=== PATIENT | female | born 1980 | race Caucasian/White ===

== ENCOUNTER 2019-04-27 06:27 | Day surgery (SDC) | payer OTHER ==
[2019-04-26 14:32] VITALS: BMI 41.5
[~2019-04-27] VITALS: Ht 160 cm; Wt 107.1 kg
[2019-04-27] VITALS (22 sets, daily range): BP systolic 120–177; BP diastolic 80–109; PULSE 68–100; RESP 14–23; Ht 160 cm; Wt 107.1 kg
[2019-04-27] MEDS ORDERED: ACETAMINOPHEN 500 MG TAB PO ONE (06:30)
[2019-04-27] MEDS ORDERED: LACTATED RINGER'S 1,000 ML IV SCH (07:25)
[2019-04-27] MEDS ORDERED: DICL75TA2 PO (07:31)
[2019-04-27] MEDS ORDERED: LACTATED RINGER'S 1,000 ML ONE (07:36)
[2019-04-27] MEDS ORDERED: ACETAMINOPHEN 500 MG TAB ONE (07:36)
[2019-04-27] MEDS ORDERED: ONDANSETRON 4 MG INJ ONE (08:20)
[2019-04-27] MEDS ORDERED: ROCURONIUM 50 MG INJ ONE (08:20)
[2019-04-27] MEDS ORDERED: DEXAMETHASONE 4 MG/ML 5 ML INJ ONE (08:20)
[2019-04-27] MEDS ORDERED: PROPOFOL 40 ML ONE (08:20)
[2019-04-27] MEDS ORDERED: FAMOTIDINE 20 MG INJ ONE (08:20)
[2019-04-27] MEDS ORDERED: FENTAnyl 50 MCG/ML VIAL ONE (08:20)
[2019-04-27] MEDS ORDERED: DESFLURANE 15 MIN ONE (08:20)
[2019-04-27] MEDS ORDERED: CEFAZOLIN 1 GM INJ ONE (08:20)
[2019-04-27] MEDS ORDERED: LIDOCAINE 2% (SDV) 5 ML INJ ONE (08:20)
[2019-04-27] MEDS ORDERED: MIDAZOLAM 1 MG/ML 2 ML INJ ONE (08:20)
[2019-04-27] MEDS ORDERED: BUPIVACAINE 0.25%/EPI (SDV) 30 ML INJ ONE (09:00)
[2019-04-27] MEDS ORDERED: TRIAMCINOLONE ACET 40 MG/ML INJ ONE (09:00)
[2019-04-27] MEDS ORDERED: POLYMYXIN/BACITRACIN 1L IRRIG ONE (09:00)
--- NOTE | 2019-04-27 09:05 | HPN ---
Date/Time of Note Date/Time of Note DATE: 04/27/19 TIME: 09:04 Interval H&P Admission Note Pt. seen H&P reviewed: No system changes ALIYA VALENCIA M.D. Apr 27, 2019 09:05
--- NOTE | 2019-04-27 09:15 | PREAC ---
Date/Time of Note Date/Time of Note DATE: 04/27/19 TIME: 09:13 Anesthesia Eval and Record Evaluation Time Pre-Procedure Interview DATE: 04/27/19 TIME: 09:13 Age 38 Sex female NPO: 8 hrs Preoperative diagnosis chronic tonsillitis Planned procedure Bilateral tonsillectomy Past Medical History Past Medical History: Includes GI: Morbid obesity Surgery & Anesthesia Issues No known issue (lap becca) Meds Anticoagulation: No Beta Jorge Luis within 24 hr: No Reason Beta Jorge Luis not given: Pt. not on B-Jorge Luis Reported Medications Diclofenac Sodium* (Diclofenac Sodium*) 75 Mg Tablet.dr, 75 MG PO BID, #60 TAB 04/27/19 Current Medications Lactated Ringer's 1,000 ml @ 20 mls/hr Q24H IV Last administered on 04/27/19at 07:38; Admin Dose 20 MLS/HR; Start 04/27/19 at 07:25 Meds reviewed: Yes Allergies Coded Allergies: No Known Allergy (Unverified , 04/27/19) Allergies Reviewed: Yes Labs/Studies Labs Reviewed: Reviewed by anesthesiologist test: Negative Pre-procedure Exam Last vitals Vital Signs Date Temp Pulse Resp B/P (MAP) Pulse Ox O2 O2 Flow FiO2 Time Delivery Rate 04/27/19 97.5 68 16 130/88 98 Room Air 07:30 (102) Airway: Adequate mouth opening, Adequate thyromental dist Mallampati: Mallampati II Teeth: Normal Lung: Normal Heart: Normal ASA Physical Status ASA physical status: 3 Emergency: None Planned Anesthetic General/MAC: ETT Pre-operative Attestations Prior to commencing anesthesia and surgery, the patient was re-evaluated, there was verification of: *The patient's identity *The results of appropriate recent lab work and preoperative vital signs *The above evaluation not changing prior to induction *Anesthetic plan, risk benefits, alternative and complications discussed with patient/family; questions answered; patient/family understands, accepts and wishes to proceed. DK SHANKS Apr 27, 2019 09:15
[2019-04-27] MEDS ORDERED: FENTAnyl 50 MCG/ML VIAL IV PRN (09:30)
[2019-04-27] MEDS ORDERED: morphine 2 MG INJ IV PRN ×2 (09:30)
[2019-04-27] MEDS ORDERED: ONDANSETRON 4 MG INJ IV PRN (09:30)
[2019-04-27] MEDS ORDERED: ALBUTEROL 0.083% (NEB) 2.5 MG/3 ML AMP HHN PRN (09:30)
[2019-04-27] MEDS ORDERED: HYDROmorphONE 1 MG/5 ML IV SYRINGE IV PRN ×3 (09:30)
[2019-04-27] MEDS ORDERED: MEPERIDINE 25 MG INJ IV PRN (09:30)
[2019-04-27] MEDS ORDERED: OXYCODONE/ACETAMINOPHEN (5/325) TAB PO PRN ×2 (09:30)
[2019-04-27] MEDS ORDERED: DIPHENHYDRAMINE 50 MG INJ IV PRN (09:30)
--- NOTE | 2019-04-27 10:17 | OPR ---
Date/Time of Note Date/Time of Note DATE: 04/27/19 TIME: 10:14 Operative Report Procedure Date: Apr 27, 2019 Preoperative Diagnosis 1. CHRONIC TONSILLITIS. Postoperative Diagnosis SAME. Operation/Procedure Performed 1. BILATERAL TONSILLECTOMY. Surgeon see signature line Industrial Eng NONE. Anesthesia Type: general (WITH OT TUBE INTUBAATION. 27 CC 1/4% MARCAINE WITH EPI 1:200,000 SOLN.) Estimated Blood Loss: 10 - 50 ml's Transfusion none Specimen LEFT AND RIGHT TONSILS. Grafts/Implants none Tubes/Drains NONE. Complications none Pt Condition Post Procedure: stable Disposition: PACU Indications TO PREVENT INFECTIONS. Procedure Description SEE DICTATED OPERATIVE REPORT. ALIYA VALENCIA M.D. Apr 27, 2019 10:17
--- NOTE | 2019-04-27 10:21 | PDOCDIS ---
Discharge Instructions DIAGNOSIS Discharge Diagnosis 1. CHRONIC TONSILLITIS CONDITION [id number] Patient Condition: Zkbvg2h Good HOME CARE INSTRUCTIONS: Oygna0Ct Diet Instructions: Wkjpl4r Regular (NO HOT OR SPICY FOODS. DRINK LOTS OF FLUIDS AND INTAKE LOTS OF FEEDINGS.) ACTIVITY: Ovoei2Sx Activity Restrictions: Uoxri4u Slowly Increase Activity Rest between Activity Avoid heavy lifting Avoid Heavy Housework Sytax2Oz Bathing Restrictions: Bcbxw3r Tub Bath FOLLOW UP/APPOINTMENTS Follow-up Plan MY OFFICE IN 10 TO 14 DAYS. SCHOOL/WORK RELEASE May return to School/Work on: May 11, 2019 May return to School/Work with: No Restrictions ALIYA VALENCIA M.D. Apr 27, 2019 10:21
--- NOTE | 2019-04-27 10:29 | PAC ---
Date/Time of Note Date/Time of Note DATE: 04/27/19 TIME: 10:28 Post-Anesthesia Notes Post-Anesthesia Note Last documented vital signs Vital Signs Date Temp Pulse Resp B/P Pulse Ox O2 O2 Flow FiO2 Time (MAP) Delivery Rate 04/27/19 97.5 98.1 68 95 16 16 130/88 98 97 Room 07:30 102 (102) 16 Air face 3 5/101 mask 6L Activity: WNL Respiratory function: WNL Cardiovascular function: WNL Mental status: Baseline Pain reasonably controlled: Yes Hydration appropriate: Yes Nausea/Vomiting absent: Yes DK SHANKS Apr 27, 2019 10:29
[2019-04-27] MEDS: FENTAnyl 50 MCG/ML VIAL IV PRN ×2 (10:33→10:46)
[2019-04-27] MEDS: LABETALOL HCL 20MG INJ IV PRN ×2 (10:45→11:26)
--- NOTE | 2019-04-27 12:18 | OPR ---
DATE OF OPERATION: 04/27/2019 SURGEON: Myke Thomas MD PREOPERATIVE DIAGNOSES: 1. Chronic tonsillitis. 2. Tonsillar tissue hypertrophy. 3. History of acute tonsillitis episodes. POSTOPERATIVE DIAGNOSES: 1. Chronic tonsillitis. 2. Tonsillar tissue hypertrophy. 3. History of acute tonsillitis episodes. OPERATION PERFORMED: Bilateral tonsillectomy. ESTIMATED BLOOD LOSS: Less than 30 mL. COMPLICATIONS: None. SPECIMENS SENT TO LAB: Left and right tonsils for gross and microscopic evaluation. INDICATIONS: Ms. Porsha Sommers is a 38-year-old female who has a history of repeat acute tonsillit is episodes. The patient has had over 7 episodes in 1 year period, treated with p.o. antibiotics, on ly to have recurrent acute tonsillitis. The patient is currently being considered for bilateral tons illectomy procedure as indicated. Risks, benefits, and alternatives have been explained thoroughly t o Ms. Sommers and include infections, bleeding, possible damage to the lingual nerve which could re sult in tongue numbness. She also understands the risks of possible dental or gingival trauma or lac erations that can occur during the procedure. The patient also understands the risks of general and local anesthetic agents and their possible reactions. She has signed consent once her questions were answered. FINDINGS DURING PROCEDURE: A left greater than the right, pedunculated tonsil with scarring. No sig ns of malignancies or tumors, submucous cleft or bifid uvula seen during the procedure. ANESTHETIC USED: General anesthesia with orotracheal tube intubation. The patient also received a l ocal infiltrate of 27 mL of Marcaine 0.25% with epinephrine 1:200,000 solution. The patient also rec eived IV Decadron and Ancef before the case was begun. The patient also had 1 mL of Kenalog 40 mg in jected into the soft palate just above the uvula. DISPOSITION: The patient left the operating room in good and satisfactory condition, extubated to [facility] recovery room. DESCRIPTION OF PROCEDURE: The patient was taken to the operating room, placed on the surgical table in supine position, made comfortable by the COMPUTING SERVICES DIRECTOR. The patient had EKG, saturation monitor and blood pressure cuff applied. At this point, the patient was then given a mask with inhalation agents, plac ed asleep gently. The patient had a previously started IV in the preinduction area which was infusin g well. The patient was given IV sedation as well and placed under general anesthesia. The patient was then successfully orotracheally intubated with orotracheal tube with the use of a GlideScope with good visualization of the intubation. At this point, the tube was taped to the lower lip in the mi dline and the eyes were taped for protection. At this point, the vital signs noted to be stable as t he table was unlocked and rotated 90 degrees to the left. The table was then relocked as head of the table was extended to give better access to the oral cavity. At this point, a McIvor mouth gag with a 4-left blade was then placed inside the oral cavity with care not to damage dental or gingival str uctures. McIvor mouth gag was put in place, then opened and suspended from an overlying Martinez stand. The head was supported. At this point, the palate was digitally palpated and not found to have a woodard bmucous cleft and visually there was no bifid uvula present. The patient was found to have peduncula steve tonsils with the left tonsil appearing larger than the right. At this point, a 25-gauge spinal n eedle was then used to inject Marcaine 0.25% with epinephrine 1:200,000 into the lateral aspect of th e tonsils bilaterally. This was done after a brief time out with patient identification and procedur e, and all were in agreement. The left and right tonsils were then removed down normal anatomical pl anes with a Ivonne dissector with minimal amount of bleeding. After the tonsils were removed, the tons illar fossa was packed with sponge packing. Electrocautery suction Bovie was then used to cauterize bleeding points in tonsillar fossa bilaterally. One mL of Kenalog 40 mg was injected into soft palat e just above the uvula using a 25-gauge needle. At this point, electrocautery suction Bovie was then used to cauterize bleeding points of tonsillar fossa bilaterally to promote hemostasis. The 2 red R obinson catheters were removed as bleeding points superior pole of tonsillar fossa were cauterized wi th the electrocautery suction Bovie. At this point, copious amounts of normal saline solution with b acitracin added was then used to irrigate the nasopharynx, hypopharynx and nasal cavity in preparatio n for extubation. A suction catheter was placed inside the esophagus and the stomach to remove inges steve tissue products and secretions, also in preparation for extubation. At this point, no further bl eeding was noted. The patient was reversed from her general anesthetic agents. The patient was extu bated in the operating room, taken to recovery room and is currently doing well, expects to be discha rged home unless postoperative complications develop. Dictated By: MYKE MARTINEZ/MICHELLE Conf#: [id number] DID#: [id number]
== END 2019-04-27 14:42 | disposition home or self-care (01) ==
LOC: SDS 06:27
PROVIDERS: ATTEND Otolaryngology Otolaryngology/Facial Plastic Surgery
DX: J35.01 Chronic tonsillitis (principal); J35.1 Hypertrophy of tonsils
CPT/HCPCS: 42826; 88304; 94664; J0690; J1100; J2250; J2405; J3010; J7120; Z7512; Z7610